=== PATIENT | male | born 1945 | race Caucasian/White ===

== ENCOUNTER 2017-04-25 08:20 | Outpatient (CLI) | payer MEDICARE, BC ==
--- NOTE | 2017-04-25 11:31 | CT ---
CT ABDOMEN AND PELVIS WITH ORAL AND IV CONTRAST: HISTORY: Prostate cancer status post prostatectomy, rising PSA. FINDINGS: The lung hernandez are unremarkable. There is a questionable tiny calculus in the gallbladder. The liver , spleen, pancreas, and adrenal glands are normal. No free air, free fluid, or lymphadenopathy is se en. There is a thin scar in the left renal cortex. There is a 2.5 cm mass arising from the inferior pole of the right kidney with increased density of 70 Hounsfield units. A small 1 cm low-density lesion is seen in the right mid renal cortex. The small bowel loops are not abnormally dilated. There is a right hip arthroplasty resulting in artifact which reduces the sensitivity of the exam for evaluation of the pelvic contents. There are cystic masses in the pelvis measuring 4 cm on the righ t and 5.5 cm on the left consistent with post prostatectomy lymphoceles. There are degenerative changes in the spine with dextroscoliosis of the lumbar spine. There are scat tered small sclerotic foci in the spine and pelvis. IMPRESSION: 1. Indeterminate right renal masses. Ultrasound of the abdomen is recommended. 2. Probable tiny gallstone. 3. Status post prostatectomy with lymphoceles in the pelvis. 4. Sclerotic foci in the spine and pelvis. Bone islands versus sclerotic mets. POS: [facility]
--- NOTE | 2017-04-25 13:35 | NM ---
BONE SCAN: HISTORY: Rising PSA. The patient has a history of prostate cancer. RADIATION DOSE: Technetium 99m MDP 33 millicuries. TECHNIQUE: Anterior and posterior whole body delayed images are obtained. FINDINGS: The images demonstrate some mild S-shaped scoliosis in the thoracolumbar spine. Multilevel lower tho racic and numerous lumbar areas of scintigraphic abnormalities. These may represent degenerative too nges, although metastatic disease cannot be excluded. No other significant areas of abnormality seen to suggest metastatic disease. I do recommend further evaluation of the lower thoracic and lumbar r egion using pre and post contrast enhanced MR images to confirm that these are degenerative rather th an metastatic foci. IMPRESSION: Lower thoracic and lumbar areas of likely degenerative changes; however, further workup using MRI may be of use. POS: [facility]
[2017-04-25] MEDS ORDERED: Iopamidol 370 76% 100 ML VIAL ONE (16:18)
== END 2017-04-25 08:21 | disposition home or self-care (01) ==
LOC: CT 08:20
PROVIDERS: ATTEND Radiology Radiation Oncology
DX: C61 Malignant neoplasm of prostate (principal); N28.89 Other specified disorders of kidney and ureter; I89.8 Other specified noninfective disorders of lymphatic vessels and lymph nodes; Z90.79 Acquired absence of other genital organ(s)
CPT/HCPCS: 74177; 78306; 82565; A9503

== ENCOUNTER 2018-09-30 08:48 | Inpatient (IN) | payer MEDICARE, BC ==
[2018-09-30 09:26] LABS: #Lymphocytes 1.4 thou/uL (1.20-3.40); #Monocytes 1.2 thou/uL (0.11-0.59); #Neutrophils 9.3 thou/uL (1.40-6.50); %Basophils 0.2 % (0.0-1.0); %Eosinophils 0.1 % (0.0-10.0); %Lymphocytes 11.7 % (21.0-51.0); Mean Corpuscular HGB CONC 33.6 g/dL (32.0-36.0); Mean Corpuscular Hemoglobin 31.8 pg (27.0-31.0); Mean Corpuscular Volume 94.5 fL (78.0-98.0); Mean Platelet Volume 8.3 fL (7.4-10.4); Platelet Count 190 thou/uL (130-400); RBC Distribution Width 12.4 % (11.5-14.5); Red Blood Cell (RBC) Count 4.09 mill/uL (4.70-6.10); White Blood Cell (WBC) Count 11.9 thou/uL (4.8-10.8)
--- NOTE | 2018-09-30 09:28 | RAD ---
Portable chest: HISTORY: Dyspnea. Syncope. Atrial fibrillation. COMPARISON: 09/03/2018 FINDINGS: Lung wright are clear. Heart and mediastinum appear unremarkable. Vascularity is normal. Visualized osseous structures unremarkable. Postop sternotomy changes again noted. IMPRESSION: No acute finding
[2018-09-30 09:46] LABS: Bilirubin Negative (Negative); Blood, Urine Negative (Negative); Clarity Clear (Clear); Glucose, Urine (Dipstick) Normal (Negative); Leukocyte Negative Leu/uL (Negative); Nitrite Negative (Negative); Protein, Urine (Dipstick) Negative (Neg-Trace); Urobilinogen Normal mg/dL (Less than 2)
[2018-09-30 09:49] LABS: ALT (SGPT) 12 U/L (8-55); AST (SGOT) 25 U/L (5-34); Albumin 4.1 g/dL (3.4-4.8); Alkaline Phosphatase 61 U/L (40-150); Anion Gap 16 mmol/L (10-20); BUN (Urea Nitrogen) 40 mg/dL (8.4-25.7); Bilirubin, Total 0.7 mg/dL (0.2-1.2); CK (CPK) 129 U/L (30-200); Calc. Creatinine Clearance 0 mL/min (70-130); Calcium 8.9 mg/dL (7.8-10.44); Carbon Dioxide 22 mmol/L (23-31); Chloride 108 mmol/L (98-107); Estimated GFR-MDRD 40; Globulin 2.3 g/dL (2.4-3.5); Glucose 123 mg/dL (83-110); Lipase 52 U/L (8-78); Potassium 3.9 mmol/L (3.5-5.1); Protein, Total 6.4 g/dL (5.8-8.1); Sodium 142 mmol/L (136-145)
[2018-09-30 10:09] LABS: INR-International Normal Ratio 1.1; PTT 27.8 SEC (22.9-36.1); Prothrombin Time 14.4 SEC (12.0-14.7)
--- NOTE | 2018-09-30 10:12 | CT ---
CT head without contrast: Multiple axial tomograms obtained through the head without IV enhancement. INDICATIONS: Syncope COMPARISON: None FINDINGS: Ventricles have normal size and position. No evidence of intracranial mass, hemorrhage, edema, or infarct. Visualized sinuses and mastoids appear clear. Bony calvarium appears unremarkable. IMPRESSION: No acute finding
[2018-09-30 10:18] LABS: CKMB 3.9 ng/mL (0-6.6)
[2018-09-30] MEDS ORDERED: ISOVUE-370 76%-LOCM 1 ML ONE (10:23)
--- NOTE | 2018-09-30 11:01 | CT ---
CT PULMONARY ANGIOGRAM WITH IV CONTRAST AND 3D POST PROCESSING: HISTORY: Dyspnea. Syncope. Atrial fibrillation. FINDINGS: There is good contrast opacification in the pulmonary arterial vasculature with extensive filling def ects bilaterally, consistent with bilateral pulmonary embolism. No pleural or pericardial effusions are seen, There are vascular calcifications without evidence of aneurysmal dilatation of the thoracic aorta. N o pneumothoraces, lobar consolidation, or lung masses are seen. There are dependent changes in the l siobhan bases. Upper abdominal tomograms demonstrate cyst in the liver and cholelithiasis. IMPRESSION: Bilateral pulmonary embolism. Discussed over the telephone with MARZENA West, in the emergency room, at 10:41 a.m. CODE ARNAUD POS: [facility]
[2018-09-30] MEDS ORDERED: Heparin 10,000 UNITS/ 10 ML VIAL SLOW IVP SCH (11:15)
[2018-09-30] MEDS ORDERED: Heparin 25,000 units/D5W 500 ML IV SCH (11:15)
[2018-09-30 12:57] LABS: Critical Call Chem Troponin I RESULT DECREASING; Troponin I 0.667 ng/mL (< 0.028)
[2018-09-30] MEDS ORDERED: Acetaminophen 325 MG TAB PO PRN (13:30)
[2018-09-30] MEDS ORDERED: Bisacodyl 5 MG TAB PO PRN (13:30)
[2018-09-30] MEDS ORDERED: Ondansetron PF 4 MG/2 ML Vial IVP PRN (13:30)
[2018-09-30] MEDS ORDERED: Sodium Chloride 0.9% 1,000 ML IV SCH (14:00)
[2018-09-30] MEDS ORDERED: ALPRAZolam 0.5 MG TAB PO PRN (14:16)
--- NOTE | 2018-09-30 16:07 | CON ---
DATE OF CONSULTATION: 09/30/2018 SERVICE: Pulmonary Medicine. REASON FOR CONSULT: PE. HISTORY OF PRESENT ILLNESS: The patient is a 73-year-old white male with no significant past medical history. He was in his usual state of health until about 3 weeks ago. He started having increasing shortness of breath with exertion. This was actually being investigated in the outpatient setting. Ultimately, this morning it progressed to the point, where it is quite severe. He got out of bed and started walking across the hallway when he had a syncopal event. He was unconscious for about 10 seconds. The watched him go down. He did not hurt himself or strike his head. He was out for about 10 seconds and then rolled back up. He was subsequently brought to the Emergency Department, where diagnostic evaluation confirmed that he had bilateral pulmonary emboli. Clot burden was quite extensive, and he had significant right ventricular heart strain. Ultimately, I was asked whether or not tPA should be pursued. The patient did not have any absolute contraindications in getting tPA, so it was administered. So far, he is 90% through with this infusion. He has done well with it without any immediate complications. He denies having any fevers or chills. He is not having any cough, sputum production, nausea, vomiting, night sweats, or orthopnea. PAST MEDICAL HISTORY: 1. Coronary artery disease. 2. Prostate cancer. 3. Asthma. 4. Atrial fibrillation. 5. Alzheimer disease. 6. Pulmonary embolism. PAST SURGICAL HISTORY: 1. Coronary artery bypass graft surgery. 2. Transurethral resection of the prostate. 3. Right hip replacement. SOCIAL HISTORY: He drinks once a month. He denies any illicit drug or tobacco abuse. He has no exposure to chemicals, dust, asbestos, or tuberculosis. FAMILY HISTORY: Noncontributory. ALLERGIES: PROTAMINE CAUSES HEART PROBLEMS. MEDICATIONS: List of his inpatient and outpatient medications were reviewed. No specific updates were made at this time. REVIEW OF SYSTEMS: General, head, ears, eyes, nose, throat, cardiovascular, respiratory, GI, , musculoskeletal, neurologic, and skin are negative except as mentioned in the HPI. PHYSICAL EXAMINATION: VITAL SIGNS: Afebrile, pulse 79, blood pressure 98/70, respirations 21, and saturation 100% on 4 L currently. GENERAL: The patient is awake and alert, in no apparent distress. LUNGS: Wonderful air entry. No prolonged expiratory phase or wheezing is appreciated. HEART: Normal rate. Regular. ABDOMEN: Soft, nontender, and nondistended. Bowel sounds are positive. MUSCULOSKELETAL: No cyanosis or clubbing. There is no pitting in the bilateral lower extremities. NEUROLOGIC: Grossly nonfocal. LABORATORY DATA: WBC 11.9, hemoglobin 13.0 (baseline 14.5), and platelets 190, 000. INR 1.1. Creatinine 1.71 (last value in 2016 was 1.04). Basic metabolic profile and liver function studies are otherwise unremarkable. Troponin is already downtrending to 0.0667. BNP 543. Urinalysis is unremarkable. There is certainly no hematuria present. IMAGIN. CT of the brain demonstrates no acute intracranial abnormality. 2. Chest x-ray demonstrates no acute cardiopulmonary abnormality. 3. CTA of the chest demonstrates extensive bilateral pulmonary emboli. There are no pleural parenchymal changes. There is significant right ventricular heart strain. There is reflux of contrast into the inferior vena cava, massively dilated right atrium, and right ventricle. The septum of the left ventricle is quite a bit straighter than I would like to see. All of these findings are consistent with acute right heart failure. ASSESSMENT: 1. Acute hypoxic respiratory failure. 2. Syncope. 3. Acute pulmonary embolism, submassive. 4. Right ventricular heart strain. 5. Non-ST elevation myocardial infarction secondary to demand/stress. DISCUSSION AND PLAN: The patient does not have any contraindications to tPA. As such, we will move forward with providing him this medication. Two hours after the infusion is complete, we will give him his first dose of Lovenox. This is going to be 1.5 mg/kg on the first dose and then tomorrow morning, we will drop to 1 mg/ kg. Starting tomorrow, we will start ambulating the patient. If he does well with this, he can be transitioned to the telemetry unit. I will follow biomarkers including troponin and BNP on a daily basis. Assume, he clears his RV strain, he can be considered for discharge from the hospital, likely Monday. We will get him converted over to an oral anticoagulant tomorrow. He does not have any history of venothromboembolic disease. I think that we can defer a secondary hypercoagulable workup to some future time. 70 minutes have been devoted to this patient in various activities. I personally reviewed all imaging studies and laboratory data noted within this document. For fifty percent of this time, I was interacting with the patient at the bedside or coordinating care with the care team. For the remainder of the time I was immediately available to the patient in the hospital unit. Job ID: [id number] MTDD
[2018-09-30] MEDS ORDERED: Enoxaparin Sodium 120 MG/0.8 ML SYRINGE SC SCH (17:00)
--- NOTE | 2018-09-30 18:53 | HP ---
PRIMARY CARE PROVIDER: Dr. Akhil Gamez. CHIEF COMPLAINT: Syncope. HISTORY OF PRESENT ILLNESS: Mr. Cain is a pleasant 73-year-old gentleman, who was seen at [facility] on September 30, 2018. He reports that 3 or 4 weeks ago, he woke up during the night and passed out. His eased him to the floor. He has been wobbly over the last 4 to 6 weeks. He also reports shortness of breath with exertion. He denies any orthopnea. He denies any chest pain. Today morning, he was in the dining room and he turned corner around the kitchen island. He then had loss of consciousness. His was there and she eased him to the floor. He reports that the event lasted less than 5 seconds. He was therefore brought to the emergency room. REVIEW OF SYSTEMS: All systems were reviewed and found to be negative except for the pertinent positives mentioned above. PAST MEDICAL HISTORY: Asthma; prostate cancer, status post surgery and radiation therapy; coronary artery disease; atrial fibrillation; and Alzheimer disease. PAST SURGICAL HISTORY: Transurethral resection of the prostate, right hip replacement, and coronary artery bypass graft surgery. SOCIAL HISTORY: The patient reports occasional alcohol use, denies tobacco or recreational drug use. FAMILY HISTORY: No family history of venous thromboembolism. CODE STATUS: I discussed his code status. He is full code. ALLERGIES: PROTAMINE. CURRENT MEDICATIONS: 1. Amlodipine 5 mg two times a day. 2. Aricept 10 mg two times a day. 3. Aspirin 325 mg daily. 4. Virden-3 fish oil one tablet daily. 5. Flonase 50 mcg two times a day. 6. Hydrochlorothiazide 25 mg daily. 7. Lisinopril 40 mg daily. 8. Namenda 10 mg two times a day. 9. Simvastatin 40 mg daily. 10. Vitamin D3, 1000 units daily. 11. Xanax 0.5 mg three times a day. 12. Coenzyme Q10, 100 mg daily. 13. Desvenlafaxine 100 mg daily. PHYSICAL EXAMINATION: GENERAL: Mr. Cain is awake and alert, not in acute distress. VITAL SIGNS: Blood pressure is 107/84, pulse 91, respiratory rate 20, and oxygen saturation 98% on room air. He is afebrile. EYES: No scleral icterus, no conjunctival pallor. ENT: Moist mucosal membranes. No oropharyngeal erythema or exudates. NECK: Supple, nontender, trachea is midline. RESPIRATORY: Accessory muscles of breathing are not active. Chest wall movements are symmetric bilaterally. Lungs are clear to auscultation without wheeze, rhonchi, or crepitations. CARDIOVASCULAR: S1 and S2 are heard, irregular. Peripheral pulses palpable. No carotid bruit. No pericardial rub. ABDOMEN: Soft, nontender, bowel sounds are heard, no hepatomegaly, no splenomegaly. NEUROLOGIC: Cranial nerves 2 through 12 are intact, deep tendon reflexes 2+. SKIN: No rashes or subcutaneous nodules. LYMPHATIC: No cervical lymphadenopathy. PSYCHIATRIC: Normal mood, normal affect, the patient is oriented to person and place, not to time. DIAGNOSTIC STUDIES: Mr. Cain's labs and investigations were reviewed. I reviewed his electrocardiogram, which shows atrial fibrillation with premature ventricular complexes. I also reviewed his chest x-ray, which does not show any pulmonary infiltrates. Noncontrast CT scan of the brain did not show any acute findings. CT angiogram of the chest showed bilateral pulmonary embolism. He has leukocytosis with 11,900 white cells, of which 78% are neutrophils; normocytic anemia with hemoglobin 13; normal platelet count. INR 1.1. Normal sodium, normal potassium, elevated blood urea nitrogen of 40, elevated creatinine of 1.71, creatinine was 1.04 on December 27, 2015. Unremarkable LFTs. Elevated BNP of 543.5, and elevated troponin-I of 0.862. Urinalysis was negative for nitrite and leukocyte esterase. ASSESSMENT AND PLAN: Mr. Cain is a pleasant 73-year-old gentleman, who was seen at [facility] on September 30, 2018. His problem list includes: 1. Bilateral pulmonary embolism: Mr. Cain is presenting with bilateral pulmonary embolism. He has received tPA in the emergency room. He will be admitted to the Critical Care Unit. Pulmonology Service has been consulted for opinion and help with management. 2. Elevated troponin-I: Most likely secondary to pulmonary embolism. Cardiology Service has been consulted for opinion and help with management. 3. Acute kidney injury: We will recheck a.m. labs and follow the creatinine. 4. Atrial fibrillation: We will continue home medications. The patient will be initiated on anticoagulation for pulmonary embolism. Many thanks for allowing me to participate in your patient's care. Please feel free to contact me with any questions or concerns. LEVEL OF RISK: High. LEVEL OF COMPLEXITY: High. Job ID: [id number]
[2018-09-30] MEDS: Atorvastatin Calcium 20 MG TAB PO SCH ×2 (20:38→20:39)
[2018-09-30] MEDS: Donepezil HCl 5 MG TAB PO SCH (20:39)
--- NOTE | 2018-09-30 23:55 | CON ---
DATE OF CONSULTATION: HISTORY OF PRESENT ILLNESS: Neymar Cain is a 73-year-old white male with a history of previous bypass surgery, who has had a general decline in his health over the last 3 or 4 weeks. He has been having increasing shortness of breath and weakness. Three or four weeks ago, he did have a syncopal spell when he woke up during the night. He has had progressive dyspnea on exertion. Today, he had another episode of syncope, he was out for approximately 5 to 10 seconds and is admitted. Also apparently, Dr. Gamez felt he had atrial fibrillation on the EKG several weeks ago. He was found on CT angiogram to have extensive bilateral pulmonary emboli with extensive clot burden. He has been given tPA and feels much improved at the present time. Also, he was returned to normal sinus rhythm. PAST MEDICAL HISTORY: Coronary artery disease, prostate cancer, previous atrial fibrillation, asthma, alzheimer's disease, pulmonary embolism, hypertension and hypercholesterolemia. PAST SURGICAL HISTORY: CABG by Dr. Filiberto Callejas in August 2001. Dr. Cortez did his catheterization. Those records have been purged. Right hip replacement, transurethral resection of the prostate. SOCIAL HISTORY: He does not smoke. He occasionally drinks. FAMILY HISTORY: Unremarkable. MEDICATIONS: 1. Alprazolam 0.5 mg at bedtime. 2. Norvasc 10 mg daily. 3. Aspirin 325 daily. 4. Donepezil 10 mg b.i.d. 5. Hydrochlorothiazide 25 daily. 6. Lisinopril 40 mg daily. 7. Memantine 10 mg b.i.d. 8. Simvastatin 40 at bedtime. ALLERGIES: PROTAMINE. REVIEW OF SYSTEMS: Unremarkable. PHYSICAL EXAMINATION: VITAL SIGNS: Blood pressure 97/66, pulse 83. HEENT: PERRL. NECK: Supple. CHEST: Clear. CARDIAC: S1 and S2 normal without any S3, S4, or murmurs. ABDOMEN: Normal bowel sounds without tenderness or organomegaly. EXTREMITIES: Revealed no clubbing, cyanosis, or edema. NEUROLOGIC: Grossly intact. SKIN: Warm and dry. LABORATORY DATA: Initial EKG reveals atrial fibrillation with controlled rate with nonspecific ST and T-wave changes. He has since converted to sinus rhythm. Head CT is unremarkable. Chest CTA revealed bilateral pulmonary emboli. Hemoglobin 13.0, hematocrit 38.7, white count 11,900, platelets 190,000, INR 1.1. Sodium 142, potassium 3.9, chloride 108, carbon dioxide 22, BUN 40, creatinine 1.71. Troponin I 0.862. BNP 543.5. IMPRESSION: 1. Extensive bilateral pulmonary emboli, status post tPA infusion. 2. Non-ST elevation myocardial infarction, type 2. 3. History of coronary artery bypass grafting in 2001. 4. Hypertension. 5. Hypercholesterolemia. 6. Alzheimer's disease. 7. Acute kidney injury versus chronic kidney disease. PLAN: Echocardiogram will be performed. The patient went into atrial fibrillation, but has since converted back to sinus rhythm. He is currently being anticoagulated. Job ID: [id number] MTDD
[2018-10-01] MEDS: Amlodipine 5 MG TAB PO SCH (08:56)
[2018-10-01] MEDS: Lisinopril 20 MG TAB PO SCH (08:57)
[2018-10-01] MEDS ORDERED: Enoxaparin Sodium 80 MG/0.8 ML SYRINGE SC SCH (09:00)
[2018-10-01] MEDS ORDERED: Pantoprazole 40 MG VIAL IVP SCH (09:30)
[2018-10-01] MEDS ORDERED: Polyethylene Glycol 3350 17 GM Packet PO SCH (09:30)
[2018-10-01 09:46] LABS: Platelet Count 193 thou/uL (130-400)
[2018-10-01 10:05] LABS: Phosphorus 2.9 mg/dL (2.3-4.7)
[2018-10-01 10:07] LABS: Anion Gap 11 mmol/L (10-20); BUN (Urea Nitrogen) 32 mg/dL (8.4-25.7); Calc. Creatinine Clearance 76 mL/min (70-130); Calcium 8.5 mg/dL (7.8-10.44); Carbon Dioxide 24 mmol/L (23-31); Chloride 108 mmol/L (98-107); Estimated GFR-MDRD 66; Glucose 99 mg/dL (83-110); Magnesium 2.1 mg/dL (1.6-2.6); Potassium 3.4 mmol/L (3.5-5.1); Sodium 140 mmol/L (136-145)
[2018-10-01 10:11] LABS: Troponin I 0.179 ng/mL (< 0.028)
--- NOTE | 2018-10-01 10:35 | PRG ---
DATE OF SERVICE: 10/01/2018 SERVICE: Pulmonary Medicine. INTERVAL HISTORY: The patient is doing fine from respiratory standpoint. That being said, he had multiple bloody bowel movements overnight. He first passed a large clot. Then, he passed a smaller clot. The patient is asymptomatic. He denies any chest discomfort or shortness of breath. Otherwise, he is returning to his usual state of health. He does not note having any previous bloody bowel movements or black stools. PHYSICAL EXAMINATION: VITAL SIGNS: Afebrile, pulse 79, blood pressure 129/89, respirations 20, and saturation 96% on room air. GENERAL: The patient is awake and alert, in no apparent distress. LUNGS: Very good air entry. No prolonged expiratory phase or wheezing is present. HEART: Normal rate and regular. ABDOMEN: Soft, nontender, nondistended. Bowel sounds are positive. MUSCULOSKELETAL: No cyanosis or clubbing. No pitting in the bilateral lower extremities. NEUROLOGIC: Grossly nonfocal. LABORATORY DATA: Laboratories from this morning are actually pending. ASSESSMENT: 1. Acute hypoxic respiratory failure, resolved. 2. Pulmonary embolism, submassive. 3. Gastrointestinal bleed. 4. Syncope. 5. Atrial fibrillation with rapid ventricular response, returned to sinus rhythm. 6. Right ventricular heart strain. 7. [id number] myocardial infarction secondary to demand. DISCUSSION AND PLAN: The patient is doing fine from respiratory standpoint, but the GI bleed is alarming. I will repeat stat hemoglobin and hematocrit. We will type and cross him, give him a bowel prep to see if he clears. If his hemoglobins continue to fall off, we will give him blood and FFP. Anticoagulation will be held, temporarily. Critical Care will continue to follow along. He will need to stay in the ICU until the rate of his bleed is delineated. Job ID: [id number] MTDD
[2018-10-01] MEDS ORDERED: GoLYTELY 4,000 ml Bottle PO SCH (12:00)
[2018-10-01 12:50] LABS: #Eosinphils 0.1 thou/uL (0.0-0.7); #Lymphocytes 1.2 thou/uL (1.20-3.40); #Monocytes 0.9 thou/uL (0.11-0.59); #Neutrophils 5.8 thou/uL (1.40-6.50); %Basophils 0.6 % (0.0-1.0); %Eosinophils 1.3 % (0.0-10.0); %Lymphocytes 14.6 % (21.0-51.0); %Monocytes 10.8 % (0.0-10.0); %Neutrophils 72.7 % (42.0-75.0); Hemoglobin 11.8 g/dL (14.0-18.0); Mean Corpuscular HGB CONC 32.9 g/dL (32.0-36.0); Mean Corpuscular Hemoglobin 30.9 pg (27.0-31.0); Mean Corpuscular Volume 93.8 fL (78.0-98.0); Mean Platelet Volume 8.9 fL (7.4-10.4); Platelet Count 187 thou/uL (130-400); RBC Distribution Width 12.4 % (11.5-14.5); Red Blood Cell (RBC) Count 3.83 mill/uL (4.70-6.10)
[2018-10-01] MEDS ORDERED: PROPOFOL 200 MG/20 ML VIAL ONE (13:01)
--- NOTE | 2018-10-01 13:03 | PDOC.HOSPP ---
- Subjective Encounter Date: 10/01/18 Encounter Time: 09:00 Subjective: Pt seen for followup re; bilateral pulmonary embolism. Reports having blood in stool. - Objective Vital Signs & Weight: Vital Signs (12 hours) Temp Pulse BP Pulse Ox 10/01/18 12:00 98.1 F 10/01/18 11:41 99 10/01/18 08:57 128/89 10/01/18 08:56 79 128/89 10/01/18 07:29 98 10/01/18 07:00 97.9 F 10/01/18 04:00 98.2 F Weight Weight 195 lb 5.273 oz Most Recent Monitor Data Heart Rate from ECG 91 NIBP 122/79 NIBP BP-Mean 93 Respiration from ECG 22 SpO2 96 I&O: 09/30/18 10/01/18 10/02/18 06:59 06:59 06:59 Intake Total 1396 Output Total 945 500 Balance 451 -500 Result Diagrams: 10/01/18 09:26 10/01/18 09:32 Additional Labs: labs and MARs reviewed by me EKG Reviewed by me: Yes (Tele; NSR) ROS - Review of Systems Constitutional: denies: fever, chills, sweats, weakness, malaise Respiratory: denies: cough, shortness of breath, SOB with excertion, pleuritic pain, wheezing Cardiovascular: denies: chest pain, palpitations, orthopnea, paroxysmal noc. dyspnea, edema, light headedness Gastrointestinal: reports: hematochezia. denies: nausea, vomitting, abdominal pain, diarrhea, constipation, melena Genitourinary: denies: dysuria, frequency, incontinence, hematuria, retention - Medication Medications: Active Medications Generic Name Dose Route Start Last Admin Trade Name Freq PRN Reason Stop Dose Admin Amlodipine Besylate 5 mg 10/01/18 09:00 10/01/18 08:56 Norvasc PO 5 mg DAILY JORGE Administration Atorvastatin Calcium 20 mg 09/30/18 21:00 09/30/18 20:39 Lipitor PO 20 mg HS JORGE Administration Donepezil HCl 5 mg 09/30/18 21:00 09/30/18 20:39 Aricept PO 5 mg HS JORGE Administration Enoxaparin Sodium 80 mg 10/01/18 09:00 10/01/18 08:58 Lovenox SC Not Given 0900,2100 [facility] Lisinopril 20 mg 10/01/18 09:00 10/01/18 08:57 Zestril PO 20 mg DAILY JORGE Administration Memantine 10 mg 10/01/18 09:00 10/01/18 08:57 Namenda PO 10 mg DAILY JORGE Administration - Exam NAD Eye: anicteric sclera ENT: moist mucosa Neck: supple, symmetric, no JVD, no thyromegaly Heart: RRR, no rubs, normal peripheral pulses Heart - other findings: S1, S2 Respiratory: CTAB, no wheezes, no rales, no ronchi Gastrointestinal: soft, non-tender, non-distended, normal bowel sounds Neurological: CN's grossly intact Psychiatric: normal affect, normal behavior Hosp A/P (1) Bilateral pulmonary embolism Code(s): I26.99 - OTHER PULMONARY EMBOLISM WITHOUT ACUTE COR PULMONALE Status : Acute (2) Rectal bleed Code(s): K62.5 - HEMORRHAGE OF ANUS AND RECTUM Status: Acute (3) NSTEMI (non-ST elevated myocardial infarction) Code(s): I21.4 - NON-ST ELEVATION (NSTEMI) MYOCARDIAL INFARCTION Status: Acute (4) HTN (hypertension) Code(s): I10 - ESSENTIAL (PRIMARY) HYPERTENSION Status: Chronic (5) Dyslipidemia Code(s): E78.5 - HYPERLIPIDEMIA, UNSPECIFIED Status: Chronic (6) Alzheimer's dementia Code(s): G30.9 - ALZHEIMER'S DISEASE, UNSPECIFIED; F02.80 - DEMENTIA IN OTH DISEASES CLASSD ELSWHR W/O BEHAVRL DISTURB Status: Chronic - Plan plan discussed w/ family, out of bed/ambulate Pt to go for scope today. Hb stable. Received tPA yesterday. BP controlled. Dementia stable. NSTEMI type 2 secondary to pulmonary embolism.
[2018-10-01 14:28] LABS: Hemoglobin 12.2 g/dL (14.0-18.0)
--- NOTE | 2018-10-01 15:41 | OP ---
DATE OF PROCEDURE: 10/01/2018 PROCEDURE PERFORMED: Esophagogastroduodenoscopy. PREOPERATIVE DIAGNOSIS: Bleeding after starting anticoagulation for large pulmonary embolus. POSTOPERATIVE DIAGNOSES: 1. Small hiatal hernia. No stigmata of bleeding. 2. Mild antral gastritis. No active bleeding. No stigmata of bleeding. No biopsies obtained as he is anticoagulated. 3. Normal duodenum. RECOMMENDATION: 1. PPI therapy. 2. Colonoscopy tomorrow. Can continue with anticoagulation. Serial H and Hs. DESCRIPTION OF PROCEDURE: After the patient was informed of the risks, benefits, and possible complications of endoscopy including perforation, reaction to medication, and aspiration, informed consent was obtained. The patient was brought to endoscopy suite, where he was sedated in standard fashion. Once he was comfortable, a bite block was placed inside the orifice. The endoscope was advanced to the esophagus, stomach and second and third portions of the duodenum, and slowly removed. There was good visualization of the mucosa. There was no mass, lesions, or AV malformations identified in the esophagus. There was a small hiatal hernia present with sliding-type 3 cm with no stigmata of bleeding or Aster-Marquez tear or Rodolfo's erosions. The stomach was entered and found to be normal in retroflexed views, except for mild antral gastritis with small erosions, but no active bleeding. No stigmata of bleeding. The bulb was entered and found to be normal in forward and retroflexed views. The scope was then removed. The patient tolerated the procedure well. There were no complications. Job ID: [id number]
[2018-10-01] MEDS: GoLYTELY 4,000 ml Bottle PO SCH (17:35)
--- NOTE | 2018-10-01 19:34 | CON ---
DATE OF CONSULTATION: 10/01/2018 REASON FOR CONSULTATION: GI bleeding. HISTORY OF PRESENT ILLNESS: Mr. Cain is a 73-year-old gentleman, who came into the hospital yesterday. He presented to the emergency room with severe shortness of breath and was ultimately diagnosed with a pulmonary embolus. Apparently, he has been having some shortness of breath for about 3 weeks. Here, he had a hemodynamic instability with this and extensive clot burden with right ventricular strain. He was given tPA and rapid improvement in his hemodynamics. Overnight, he was noted to have a couple of bloody stools. Apparently, there were 3 reported over the last couple of hours ago, he passed dark clot, then some normal clot. He is asymptomatic presently. He has no nausea or vomiting and has no abdominal pain. The patient's states he has not had any issues with GI bleeding in the past. He denies any significant heartburn. He did have a colonoscopy by my partner Dr. Krishnan in 2013, which was normal. PAST MEDICAL HISTORY: Coronary artery disease with coronary artery bypass grafting in the past, prostate cancer with prostatectomy and radiation therapy with recurrence in 2018, asthma, atrial fibrillation, Alzheimer's, and then recent pulmonary embolism. PAST SURGICAL HISTORY: Coronary artery bypass graft, TURP with prostatectomy for prostate cancer, radiation therapy for prostate cancer, right hip replacement for fracture, and colonoscopy. SOCIAL HISTORY: The patient rarely drinks alcohol. Does not use any drugs. Does not smoke. FAMILY HISTORY: Negative for colorectal cancer or liver disease. ALLERGIES: NONE KNOWN. MEDICATIONS: Presently, 1. Tylenol. 2. Xanax. 3. Norvasc. 4. Lipitor. 5. Dulcolax. 6. Desvenlafaxine. 7. Aricept. 8. Lovenox 80 q.12. 9. Lisinopril. 10. Namenda. 11. Zofran. 12. Protonix. 13. GoLYTELY scheduled, but has not been given. 14. He is on simvastatin, , loratadine, hydrochlorothiazide, aspirin, and alprazolam. REVIEW OF SYSTEMS: It is difficult as the patient has some Alzheimer's, not really recall recent history. His notes he has had no allergies. No dysphagia, odynophagia, chest pain, or dyspnea. His prostate cancer is in remission. He has had no issues, rashes, dysuria, frequency, or urgency. PHYSICAL EXAMINATION: VITAL SIGNS: Temperature is 98.1, pulse is 79, and blood pressure 126/92. GENERAL: He is resting in bed comfortably. He is not dyspneic. He is not pale. LUNGS: Clear. HEART: Regular rate and rhythm without murmurs. ABDOMEN: Soft and nontender without any palpable hepatomegaly. EXTREMITIES: No clubbing, cyanosis, or edema. The stool was examined by myself, nurse, and saved it. LABORATORY DATA: Hemoglobin was 14.6 last year, 09/30 on admission it was 13.0, today it is 12 at 0926 hours. Platelet count normal at 187. White count 8. INR is 1.1. BUN and creatinine are 40 and 1.7 yesterday, 32 and 1.1 today. Electrolytes are normal. Troponin 0.667, 0.179 today. BNP 186. Lipase 52. LFTs normal. ASSESSMENT: Gastrointestinal bleeding, this seems to be lower. He does take an aspirin a day, so an upper source would be some to consider. He received tPA and that maybe just made him ooze from hemorrhoids or other sources. He had a colonoscopy 5 years ago that was normal, so I think it is probably less likely he is going to have any significant pathology in the colon. PLAN: We will proceed with EGD today. If this is negative, I think he can resume his anticoagulation for his DVT, although this is bilateral and severe, and we can plan for colonoscopy tomorrow. Job ID: [id number]
[2018-10-01] MEDS: Atorvastatin Calcium 20 MG TAB PO SCH (20:32)
[2018-10-01] MEDS: Donepezil HCl 5 MG TAB PO SCH (20:32)
[2018-10-01] MEDS: Pantoprazole 40 MG VIAL IVP SCH (20:32)
[2018-10-02 04:37] LABS: #Eosinphils 0.1 thou/uL (0.0-0.7); #Neutrophils 4.7 thou/uL (1.40-6.50); %Basophils 0.5 % (0.0-1.0); %Eosinophils 1.4 % (0.0-10.0); %Lymphocytes 15.3 % (21.0-51.0); %Monocytes 14.1 % (0.0-10.0); %Neutrophils 68.8 % (42.0-75.0); Hemoglobin 11.8 g/dL (14.0-18.0); Mean Corpuscular HGB CONC 34.2 g/dL (32.0-36.0); Mean Corpuscular Hemoglobin 32.2 pg (27.0-31.0); Mean Corpuscular Volume 94.3 fL (78.0-98.0); Mean Platelet Volume 8.4 fL (7.4-10.4); Platelet Count 203 thou/uL (130-400); RBC Distribution Width 12.2 % (11.5-14.5); Red Blood Cell (RBC) Count 3.67 mill/uL (4.70-6.10); White Blood Cell (WBC) Count 6.8 thou/uL (4.8-10.8)
[2018-10-02 04:46] LABS: Anion Gap 12 mmol/L (10-20); BUN (Urea Nitrogen) 20 mg/dL (8.4-25.7); Calc. Creatinine Clearance 96 mL/min (70-130); Calcium 8.6 mg/dL (7.8-10.44); Carbon Dioxide 26 mmol/L (23-31); Chloride 108 mmol/L (98-107); Estimated GFR-MDRD 86; Glucose 110 mg/dL (83-110); Potassium 3.9 mmol/L (3.5-5.1); Sodium 142 mmol/L (136-145)
[2018-10-02 04:51] LABS: Troponin I 0.094 ng/mL (< 0.028)
[2018-10-02 06:27] VITALS: BMI 25.2
[2018-10-02] MEDS: Lisinopril 20 MG TAB PO SCH (08:31)
[2018-10-02] MEDS: GoLYTELY 4,000 ml Bottle PO SCH (08:31)
[2018-10-02] MEDS: DESVENLAFAXINE 100 MG PO SCH (08:32)
[2018-10-02] MEDS: Amlodipine 5 MG TAB PO SCH (08:32)
[2018-10-02] MEDS: Pantoprazole 40 MG VIAL IVP SCH ×2 (08:32→19:46)
[2018-10-02] MEDS ORDERED: Venlafaxine HCl XR 150 MG CAP PO SCH (09:00)
[2018-10-02] MEDS ORDERED: Enoxaparin Sodium 80 MG/0.8 ML SYRINGE SC SCH (11:00)
[2018-10-02] MEDS ORDERED: PROPOFOL 200 MG/20 ML VIAL ONE (13:33)
[2018-10-02] MEDS ORDERED: PHENYLEPHRINE-NS 100 MCG/ML 10 ML SYRINGE ONE (13:33)
[2018-10-02] MEDS ORDERED: Lidocaine 1% PF 5 ML VIAL ONE (13:33)
--- NOTE | 2018-10-02 13:43 | PQF ---
CLINICAL DOCUMENTATION IMPROVEMENT CLARIFICATION FORM: ICD-10 Updated PLEASE DO AN ADDENDUM TO THE PROGRESS NOTE WITH ANY DOCUMENTATION UPDATES OR ADDITIONS AND CARRY THROUGH TO DC SUMMARY. THANK YOU. DATE: 10/02/18 ATTN: DR. LEMON Please exercise your independent, professional judgment in responding to the clarification form. Clinical indicators are provided on the bottom of this form for your review Please check appropriate box(s): [ ] Acute blood loss anemia [ ] Post-op anemia related to acute blood loss [ ] Anemia: [ ] Aplastic [ ] Nutritional [ ] Drug induced (specify) ___ [ ] Hemolytic [ ] Hereditary [ ] Acquired [ ] Autoimmune [ ] Non-autoimmune [ ] Enzyme disorder [ ] Chronic Anemia: [ ] Blood loss [ ] Hemolytic [ ] Simple [ ] Due to Vitamin B12 Deficiency [ ] Other [ ] Anemia of Chronic Disease (please specify) [ ] Anemia due to Neoplasm: [ ] Primary [ ] Secondary [ ] Anemia due to (please choose): [ ] Due to Chemotherapy [ ] Due to Radiotherapy [ ] Due to Immunotherapy [ ] Other diagnosis [ ] Unable to determine In addition, please specify: Present on Admission (POA): [ ] Yes [ ] No [ ] Unable to determine For continuity of documentation, please document condition throughout progress notes and discharge summary. Thank You. CLINICAL INDICATORS - SIGNS / SYMPTOMS / LABS PROGRESS NOTE 10/01: "REPORTS HAVING BLOOD IN STOOL" HGN 09/30: 13.0 HGN 10/01: 11.8 RISKS: ADMINISTRATION OF TPA TREATMENT: BLOOD TRANSFUSIONS X2 GI CONSULT EGD (This form is maintained as a part of the permanent medical record) 2014 [employer]. All Rights Reserved [email or web address] [email or web address] Office: [phone] YRN
[2018-10-02] MEDS ORDERED: Furosemide 20 MG/2 ML VIAL SLOW IVP SCH (17:00)
--- NOTE | 2018-10-02 17:12 | PRG ---
DATE OF SERVICE: 10/02/2018 SERVICE: Pulmonary Medicine. INTERVAL HISTORY: The patient is doing really well from respiratory standpoint. Breathing comfortably. He has no complaints of chest discomfort, shortness of breath, nausea, or vomiting. He had a bowel prep last night. With this, he was up and down onto the bedside commode. He did not have significant dyspnea that limited that movement. PHYSICAL EXAMINATION: VITAL SIGNS: Afebrile, pulse 89, blood pressure 129/92, respirations 23, saturation 91% on room air. GENERAL: The patient is awake and alert, in no apparent distress. LUNGS: Excellent air entry. No prolonged expiratory phase or wheezing is appreciated. HEART: Normal rate. Regular. ABDOMEN: Soft, nontender, and nondistended. Bowel sounds are positive. MUSCULOSKELETAL: No cyanosis or clubbing. No pitting in bilateral lower extremities. NEUROLOGIC: Grossly nonfocal. LABORATORY DATA: WBC 6.8, hemoglobin 11.8, platelets 203,000. Basic metabolic profile is otherwise unremarkable. Troponin is downtrending. BNP is also downtrending. Urinalysis is negative. IMAGING DATA: Echocardiogram demonstrates normal ejection fraction, diastolic dysfunction, and moderately enlarged right ventricle with normal function. ASSESSMENT: 1. Acute hypoxic respiratory failure, resolved. 2. Acute pulmonary embolism, submassive. 3. Gastrointestinal bleed (normal esophagogastroduodenoscopy, colon pending). 4. Syncope. 5. Atrial fibrillation with rapid ventricular response, returned to sinus rhythm. 6. Right ventricular heart strain, resolving. 7. Avn-ZV-plbjaulke elevation myocardial infarction, resolving. DISCUSSION AND PLAN: After the patient's colonoscopy, if there is no contraindication, we will put him back on anticoagulation. Tomorrow, if he is doing well, we will consider putting him on a direct oral anticoagulant. We will continue our mobilization efforts. Pulmonary/Critical Care will continue to follow very closely while the patient remains inhouse. Job ID: [id number]
--- NOTE | 2018-10-02 18:23 | PDOC.HOSPP ---
- Subjective Encounter Date: 10/02/18 Encounter Time: 08:20 Subjective: Pt seen for followup re: pulmonary embolism. Says he feels better. - Objective Vital Signs & Weight: Vital Signs (12 hours) Temp Pulse BP Pulse Ox 10/02/18 17:21 97 10/02/18 16:00 98.1 F 10/02/18 12:00 98.1 F 10/02/18 08:32 87 110/89 10/02/18 08:31 110/89 10/02/18 07:12 96 Weight Weight 196 lb 3.382 oz Most Recent Monitor Data Heart Rate from ECG 95 NIBP 131/97 NIBP BP-Mean 108 Respiration from ECG 20 SpO2 94 I&O: 10/01/18 10/02/18 10/03/18 06:59 06:59 06:59 Intake Total 1396 2550 240 Output Total 945 1400 1100 Balance 451 1150 -860 Result Diagrams: 10/02/18 03:49 10/02/18 03:49 Additional Labs: Labs and MARs reviewed by me. EKG Reviewed by me: Yes (Tele: NSR) ROS - Review of Systems Respiratory: denies: cough, shortness of breath, SOB with excertion, pleuritic pain, wheezing, other Cardiovascular: denies: chest pain, palpitations, orthopnea, paroxysmal noc. dyspnea, edema, light headedness Gastrointestinal: denies: nausea, vomitting, abdominal pain, diarrhea, constipation, melena, hematochezia - Medication Medications: Active Medications Generic Name Dose Route Start Last Admin Trade Name Freq PRN Reason Stop Dose Admin Amlodipine Besylate 5 mg 10/01/18 09:00 10/02/18 08:32 Norvasc PO 5 mg DAILY JORGE Administration Atorvastatin Calcium 20 mg 10/01/18 21:00 10/01/18 20:32 Lipitor PO 20 mg HS JORGE Administration Donepezil HCl 5 mg 09/30/18 21:00 10/01/18 20:32 Aricept PO 5 mg HS JORGE Administration Enoxaparin Sodium 80 mg 10/01/18 09:00 10/01/18 08:58 Lovenox SC Not Given 0900,2100 JORGE Furosemide 20 mg 10/02/18 17:00 10/02/18 17:07 Lasix SLOW IVP 10/02/18 19:00 20 mg NOW JORGE Administration Lisinopril 20 mg 10/01/18 09:00 10/02/18 08:31 Zestril PO 20 mg DAILY JORGE Administration Memantine 10 mg 10/01/18 09:00 10/02/18 08:31 Namenda PO 10 mg DAILY JORGE Administration Pantoprazole Sodium 40 mg 10/01/18 21:00 10/02/18 08:32 Protonix IVP 40 mg Q12HR JORGE Administration Desvenlafaxine 100 1 each 10/02/18 09:00 10/02/18 08:32 Mg Er PO 1 each DAILY JORGE Administration Sodium Chloride 10 ml 10/01/18 21:00 10/02/18 08:33 Flush - Normal Saline IVF 10 ml Q12HR JORGE Administration - Exam NAD Eye: anicteric sclera ENT: moist mucosa Neck: supple Heart: RRR Respiratory: CTAB Gastrointestinal: soft, non-tender Neurological: no weakness Psychiatric: normal affect, normal behavior Hosp A/P (1) Bilateral pulmonary embolism Code(s): I26.99 - OTHER PULMONARY EMBOLISM WITHOUT ACUTE COR PULMONALE Status : Acute (2) Acute blood loss anemia Code(s): D62 - ACUTE POSTHEMORRHAGIC ANEMIA Status: Acute Plan: not present on admission (3) NSTEMI (non-ST elevated myocardial infarction) Code(s): I21.4 - NON-ST ELEVATION (NSTEMI) MYOCARDIAL INFARCTION Status: Acute (4) HTN (hypertension) Code(s): I10 - ESSENTIAL (PRIMARY) HYPERTENSION Status: Chronic (5) Dyslipidemia Code(s): E78.5 - HYPERLIPIDEMIA, UNSPECIFIED Status: Chronic (6) Alzheimer's dementia Code(s): G30.9 - ALZHEIMER'S DISEASE, UNSPECIFIED; F02.80 - DEMENTIA IN OTH DISEASES CLASSD ELSWHR W/O BEHAVRL DISTURB Status: Chronic (7) Rectal bleed Code(s): K62.5 - HEMORRHAGE OF ANUS AND RECTUM Status: Resolved - Plan plan discussed w/ family, out of bed/ambulate Continue Lovenox, switch to NOACs if hemoglobin continues to be stable and after all procedures completed. Pt to go for colonoscopy today, had EGD, report noted. Hb stable. s/p tPA two days ago. BP controlled. Dementia stable. NSTEMI type 2 secondary to pulmonary embolism, troponins trending down.
[2018-10-02] MEDS: Donepezil HCl 5 MG TAB PO SCH (19:45)
[2018-10-02] MEDS: Atorvastatin Calcium 20 MG TAB PO SCH (19:45)
--- NOTE | 2018-10-03 01:34 | OP ---
DATE OF PROCEDURE: 10/02/2018 PROCEDURE PERFORMED: Colonoscopy with argon plasma coagulation. INDICATION FOR PROCEDURE: Hematochezia in light of recent anticoagulation with tPA. DESCRIPTION OF PROCEDURE: After the risks and benefits of the procedure were explained to the patient including risks of bleeding, infection, perforation, reactions to anesthesia, aspiration and/or pain, informed consent was obtained. The patient was then taken to the endoscopy suite, where deep sedation was administered via propofol and anesthesia support. Once adequate sedation was achieved, a digital rectal examination was performed followed by introduction of the standard colonoscope which was then advanced to the terminal ileum with some difficulty due to tortuosity of the colon. The quality of the prep was fair with moderate amount of adherent stool seen throughout the entire colon. The patient tolerated the procedure well with no immediate perioperative complications. Upon conclusion of the procedure, all equipment was removed from the patient and he was transferred to ICU in satisfactory condition. FINDINGS: Digital rectal exam: Normal examination on external exam. Colon findings: Moderate amount of adherent stool was seen throughout the entire colon, which did interfere with visualization somewhat but with aggressive irrigation and suctioning, was not able to be changed from a fair prep. Lesions less than 4 mm in size could have been missed of the mucosa seen. Normal-appearing mucosa was seen within the terminal ileum, as well as at the ileocecal valve and appendiceal orifice. A 4 mm polyp was seen in the cecum and not intervened upon during this examination. Given his recent history of bleeding and fear of further bleeding from the site if intervened upon, a 3 to 4 mm polyp was also seen in the ascending colon and again not intervened upon. A 3 to 4 mm polyp was seen in the transverse colon and again not intervened upon as well. Normal-appearing mucosa was then seen in the descending colon. Numerous small and medium-sized diverticula were seen in the sigmoid colon and with careful inspection, there was no evidence of active or recent bleeding. Normal-appearing mucosa was then seen within the rectum. However, in the distal rectum, there were multiple telangiectasias noted that did exhibit active and recent bleeding, especially with manipulation of the scope. These arteriovenous malformations/telangiectasias were located just proximal to the dentate line and affecting the distal colon up to 3 cm past the anal verge. Given his history of prostate cancer with radiation, this was consistent with radiation proctitis. These bleeding telangiectasias were then intervened upon successfully with argon plasma coagulation with good hemostasis achieved. No internal hemorrhoids were seen on rectal retroflexion. IMPRESSION: 1. Multiple small colonic polyps seen in the cecum, ascending and transverse colon, not intervened upon due to increased risk of bleeding while on anticoagulation. 2. Moderate sigmoid diverticulosis without evidence of active/recent bleeding. 3. 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 RECOMMENDATIONS: 1. We will continue to trend H and H and transfuse as necessary to maintain an H and H of 7/21. 2. Continue to monitor clinically for signs of active GI bleeding. 3. Would attempt to hold full anticoagulation for another 12 to 24 hours given the intervention today and then restart in light of recent pulmonary emboli requiring tPA. 4. We will place the patient on a clear liquid diet and advance as tolerated in light of possible bleeding. We will continue to follow. Please call with any questions. Job ID: [id number]
[2018-10-03 05:37] LABS: Hemoglobin 12.5 g/dL (14.0-18.0)
[2018-10-03 05:53] LABS: Anion Gap 14 mmol/L (10-20); BUN (Urea Nitrogen) 16 mg/dL (8.4-25.7); Calc. Creatinine Clearance 86 mL/min (70-130); Calcium 8.9 mg/dL (7.8-10.44); Carbon Dioxide 24 mmol/L (23-31); Chloride 109 mmol/L (98-107); Estimated GFR-MDRD 76; Glucose 95 mg/dL (83-110); Potassium 3.5 mmol/L (3.5-5.1); Sodium 143 mmol/L (136-145)
[2018-10-03] MEDS: DESVENLAFAXINE 100 MG PO SCH (08:35)
[2018-10-03] MEDS: Lisinopril 20 MG TAB PO SCH (08:36)
[2018-10-03] MEDS: Amlodipine 5 MG TAB PO SCH (08:36)
--- NOTE | 2018-10-03 13:59 | PDOC.HOSPP ---
- Subjective Encounter Date: 10/03/18 Encounter Time: 09:30 Subjective: awake, no sob or pain had a small episode of blood in stool, none after that and family at bedside - Objective Vital Signs & Weight: Vital Signs (12 hours) Temp Pulse BP Pulse Ox 10/03/18 11:58 98.3 F 10/03/18 08:36 91 105/85 10/03/18 07:18 99 10/03/18 07:00 98.1 F 10/03/18 03:00 98.0 F Weight Weight 194 lb 14.218 oz Most Recent Monitor Data Heart Rate from ECG 113 NIBP 103/83 NIBP BP-Mean 89 Respiration from ECG 21 SpO2 100 I&O: 10/02/18 10/03/18 10/04/18 06:59 06:59 06:59 Intake Total 2550 390 960 Output Total 1400 2600 300 Balance 1150 -2210 660 Result Diagrams: 10/03/18 05:01 10/03/18 05:01 ROS - Medication Medications: Active Medications Generic Name Dose Route Start Last Admin Trade Name Rosalio PRN Reason Stop Dose Admin Amlodipine Besylate 5 mg 10/01/18 09:00 10/03/18 08:36 Norvasc PO 5 mg DAILY JORGE Administration Atorvastatin Calcium 20 mg 10/01/18 21:00 10/02/18 19:45 Lipitor PO 20 mg HS JORGE Administration Donepezil HCl 5 mg 09/30/18 21:00 10/02/18 19:45 Aricept PO 5 mg HS JORGE Administration Enoxaparin Sodium 80 mg 10/01/18 09:00 10/01/18 08:58 Lovenox SC Not Given 899,2099 JORGE Lisinopril 20 mg 10/01/18 09:00 10/03/18 08:36 Zestril PO 20 mg DAILY JORGE Administration Memantine 10 mg 10/01/18 09:00 10/03/18 08:36 Namenda PO 10 mg DAILY JORGE Administration Pantoprazole Sodium 40 mg 10/03/18 09:00 10/03/18 08:35 Protonix PO 40 mg Q12HR JORGE Administration Desvenlafaxine 100 1 each 10/02/18 09:00 10/03/18 08:35 Mg Er PO 1 each DAILY JORGE Administration Sodium Chloride 10 ml 10/01/18 21:00 10/03/18 08:46 Flush - Normal Saline IVF 10 ml Q12HR JORGE Administration - Exam NAD, awake alert Eye: PERRL, anicteric sclera ENT: no oropharyngeal lesions, moist mucosa Neck: supple, no JVD Heart: RRR, no murmur Respiratory: no wheezes, no rales Gastrointestinal: soft, non-tender, normal bowel sounds Extremities: no cyanosis, no edema Neurological: CN's grossly intact, no focal deficits Hosp A/P (1) Acute blood loss anemia Code(s): D62 - ACUTE POSTHEMORRHAGIC ANEMIA Status: Acute (2) Bilateral pulmonary embolism Code(s): I26.99 - OTHER PULMONARY EMBOLISM WITHOUT ACUTE COR PULMONALE Status : Acute (3) NSTEMI (non-ST elevated myocardial infarction) Code(s): I21.4 - NON-ST ELEVATION (NSTEMI) MYOCARDIAL INFARCTION Status: Acute (4) Alzheimer's dementia Code(s): G30.9 - ALZHEIMER'S DISEASE, UNSPECIFIED; F02.80 - DEMENTIA IN OTH DISEASES CLASSD ELSWHR W/O BEHAVRL DISTURB Status: Chronic (5) Dyslipidemia Code(s): E78.5 - HYPERLIPIDEMIA, UNSPECIFIED Status: Chronic (6) HTN (hypertension) Code(s): I10 - ESSENTIAL (PRIMARY) HYPERTENSION Status: Chronic (7) Rectal bleed Code(s): K62.5 - HEMORRHAGE OF ANUS AND RECTUM Status: Acute - Plan had radiation proctitis with argon plasma coagulation done yesterday h/h stable, clear liq diet anticoagulation per pulm adv to amb as tolerated with PT/walking program continue norvasc, lipitor, aricept, lisinopril, protonix afib in sinus rhythm
--- NOTE | 2018-10-03 15:43 | PRG ---
DATE OF SERVICE: 10/03/2018 SERVICE: Pulmonary Medicine. INTERVAL HISTORY: The patient is doing great from respiratory standpoint. He denies any current chest discomfort, nausea, vomiting, fevers, or chills. He has a little bit of tachycardia when he gets out of bed and into a chair. Otherwise, there has been no interval change to his condition. He had a colonoscopy. On the colonoscopy, bleeding telangiectasias of the distal rectum were identified proximal to the anal verge. ASSESSMENT: 1. Acute hypoxic respiratory failure, resolved. 2. Acute pulmonary embolism, submassive. 3. Gastrointestinal bleed secondary to bleeding arteriovenous malformations of the distal rectum secondary to radiation. 4. Syncope, resolved. 5. Atrial fibrillation with rapid ventricular response, returned to sinus rhythm. 6. Right ventricular heart strain, resolved. 7. [id number] myocardial infarction, resolved. DISCUSSION AND PLAN: I am going to interrupt the patient's Lovenox. We will initiate Eliquis. At this point, he is stable for transition out of the ICU to the telemetry unit. Pulmonary/Critical Care will follow along. If he remains stable until tomorrow, he can be considered for transition out of the hospital. Job ID: [id number]
[2018-10-03] MEDS: Apixaban 5 MG TAB PO SCH ×3 (17:04→20:56)
--- NOTE | 2018-10-03 19:27 | PRG ---
DATE OF SERVICE: SUBJECTIVE: Mr. Cain has had no further bleeding. OBJECTIVE: VITAL SIGNS: Temperature is 99, pulse 87, blood pressure 131/89. ABDOMEN: Soft, nontender. LABORATORY DATA: Hemoglobin is 12.5 today. ASSESSMENT: Lower gastrointestinal bleeding after being placed on anticoagulation for pulmonary embolus. This is likely related to exacerbation of radiation proctitis. Dr. Philip treated this with argon plasma coagulation yesterday. RECOMMENDATIONS: 1. I would continue using full-dose anticoagulation, it is needed for pulmonary embolus. 2. It may be reasonable to keep him on a PPI for ulcer prophylaxis, already he is on blood thinners. 3. He may have some rectal bleeding from time to time. If this becomes successive, we can re-treat his radiation proctitis with argon plasma coagulation here in a week or so. I have talked with the patient's and noted that he is going to go home on anticoagulation. If he has massive bleeding, he will have to come back. If he has a little bit of bleeding, we could see him in the office and treat him. We will sign off at this point. If I can be of any further assistance in the patient's care, please do not hesitate to contact me. Job ID: [id number]
[2018-10-03] MEDS: Atorvastatin Calcium 20 MG TAB PO SCH (20:56)
[2018-10-03] MEDS: Donepezil HCl 5 MG TAB PO SCH (20:56)
[2018-10-04 06:33] LABS: Phosphorus 3.7 mg/dL (2.3-4.7)
[2018-10-04] MEDS: Apixaban 5 MG TAB PO SCH ×2 (08:34→20:49)
[2018-10-04] MEDS: Amlodipine 5 MG TAB PO SCH (08:34)
[2018-10-04] MEDS: Lisinopril 20 MG TAB PO SCH (08:34)
[2018-10-04] MEDS: DESVENLAFAXINE 100 MG PO SCH (08:35)
--- NOTE | 2018-10-04 12:07 | PDOC.HOSPP ---
- Subjective Encounter Date: 10/04/18 Encounter Time: 10:00 Subjective: no further bleeding per rectum no sob or chest pain eating well, at bedside is unsteady when he walks per /staff - Objective Vital Signs & Weight: Vital Signs (12 hours) Temp Pulse Resp BP BP Pulse Ox 10/04/18 08:34 77 110/78 10/04/18 08:15 98.4 F 77 18 110/78 99 10/04/18 04:00 98.1 F 59 L 18 118/72 96 Weight Weight 189 lb 4.8 oz Most Recent Monitor Data Heart Rate from ECG 99 NIBP 132/100 NIBP BP-Mean 110 Respiration from ECG 15 SpO2 100 I&O: 10/03/18 10/04/18 10/05/18 06:59 06:59 06:59 Intake Total 390 1280 Output Total 2600 600 Balance -2210 680 Result Diagrams: 10/04/18 05:36 10/03/18 05:01 ROS - Medication Medications: Active Medications Generic Name Dose Route Start Last Admin Trade Name Rosalio PRN Reason Stop Dose Admin Amlodipine Besylate 5 mg 10/01/18 09:00 10/04/18 08:34 Norvasc PO 5 mg DAILY JORGE Administration Apixaban 5 mg 10/03/18 21:00 10/04/18 08:34 Eliquis PO 5 mg BID JORGE Administration Atorvastatin Calcium 20 mg 10/01/18 21:00 10/03/18 20:56 Lipitor PO 20 mg HS JORGE Administration Donepezil HCl 5 mg 09/30/18 21:00 10/03/18 20:56 Aricept PO 5 mg HS JORGE Administration Lisinopril 20 mg 10/01/18 09:00 10/04/18 08:34 Zestril PO 20 mg DAILY JORGE Administration Memantine 10 mg 10/01/18 09:00 10/04/18 08:34 Namenda PO 10 mg DAILY JORGE Administration Pantoprazole Sodium 40 mg 10/04/18 09:00 10/04/18 08:34 Protonix PO 40 mg DAILY JORGE Administration Desvenlafaxine 100 1 each 10/02/18 09:00 10/04/18 08:35 Mg Er PO 1 each DAILY JORGE Administration Sodium Chloride 10 ml 10/01/18 21:00 10/04/18 08:35 Flush - Normal Saline IVF 10 ml Q12HR JORGE Administration - Exam NAD, awake alert Eye: PERRL, anicteric sclera ENT: no oropharyngeal lesions, moist mucosa Neck: supple, no JVD Heart: RRR, no murmur Respiratory: no wheezes, no rales Gastrointestinal: soft, non-tender, normal bowel sounds Extremities: no clubbing, no edema Neurological: CN's grossly intact, no focal deficits Psychiatric: normal affect Hosp A/P (1) Acute blood loss anemia Code(s): D62 - ACUTE POSTHEMORRHAGIC ANEMIA Status: Acute (2) Bilateral pulmonary embolism Code(s): I26.99 - OTHER PULMONARY EMBOLISM WITHOUT ACUTE COR PULMONALE Status : Acute (3) NSTEMI (non-ST elevated myocardial infarction) Code(s): I21.4 - NON-ST ELEVATION (NSTEMI) MYOCARDIAL INFARCTION Status: Resolved (4) Alzheimer's dementia Code(s): G30.9 - ALZHEIMER'S DISEASE, UNSPECIFIED; F02.80 - DEMENTIA IN OTH DISEASES CLASSD ELSWHR W/O BEHAVRL DISTURB Status: Chronic (5) Dyslipidemia Code(s): E78.5 - HYPERLIPIDEMIA, UNSPECIFIED Status: Chronic (6) HTN (hypertension) Code(s): I10 - ESSENTIAL (PRIMARY) HYPERTENSION Status: Chronic (7) Rectal bleed Code(s): K62.5 - HEMORRHAGE OF ANUS AND RECTUM Status: Resolved - Plan had radiation proctitis with argon plasma coagulation h/h stable, solid diet on eliquis, no bleeding so far, tolerating it well to amb as tolerated with PT/walking program continue norvasc, lipitor, aricept, lisinopril, protonix afib in sinus rhythm rehab eval/swing bed, d/w CM and rehab liason
--- NOTE | 2018-10-04 14:56 | PRG ---
DATE OF SERVICE: 10/04/2018 SERVICE: Pulmonary Medicine. INTERVAL HISTORY: The patient is doing really well from breathing standpoint. Denies any cough, sputum production, fevers, chills, nausea, or vomiting. He is not short of breath. He has been working with physical therapy and walking. He does not have any dyspnea that limits his activity. PHYSICAL EXAMINATION: VITAL SIGNS: Afebrile, pulse 68, blood pressure 107/82, respirations 14, saturation 99% on room air. GENERAL: The patient is awake and alert, in no apparent distress. LUNGS: Very good air entry without any prolonged expiratory phase or wheezing present. HEART: Normal rate, regular. ABDOMEN: Soft, nontender, and nondistended. Bowel sounds are positive. MUSCULOSKELETAL: No cyanosis or clubbing. There is no pitting in the bilateral lower extremities. NEUROLOGIC: Grossly nonfocal. LABORATORY DATA: Hemoglobin 13.0 and stable. INR 1.1. Basic metabolic profile is unremarkable. BNP is about stable. Troponin is downtrending to 0.08. Magnesium and phosphorous fall within normal limits. ASSESSMENT: 1. Acute hypoxic respiratory failure, resolved. 2. Acute pulmonary embolism, submassive. 3. 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 4. Syncope, resolved. 5. Atrial fibrillation with rapid ventricular response, returned to sinus rhythm. 6. Right ventricular heart strain, resolved. 7. Xdr-CL-vbidnyyzt myocardial infarction, resolved. DISCUSSION AND PLAN: The patient is doing great. We are going to continue the Eliquis twice daily. He will need a total duration of 9 months of therapy. At this point, he is stable for transition out of the hospital. He has no further requirements for inpatient Pulmonary/Critical Care opinion, and I will sign off. At this point, we are simply awaiting disposition to rehabilitation center. Job ID: [id number]
[2018-10-04] MEDS: Donepezil HCl 5 MG TAB PO SCH (20:49)
[2018-10-04] MEDS: Atorvastatin Calcium 20 MG TAB PO SCH (20:49)
[2018-10-05] MEDS: Lisinopril 20 MG TAB PO SCH (09:35)
[2018-10-05] MEDS: Apixaban 5 MG TAB PO SCH ×2 (09:36→20:20)
[2018-10-05] MEDS: Amlodipine 5 MG TAB PO SCH (09:36)
[2018-10-05] MEDS: Donepezil HCl 5 MG TAB PO SCH (09:39)
[2018-10-05] MEDS: DESVENLAFAXINE 100 MG PO SCH (09:40)
--- NOTE | 2018-10-05 10:44 | PDOC.HOSPP ---
- Subjective Encounter Date: 10/05/18 Encounter Time: 10:00 Subjective: no sob or palp at bedside feels better - Objective Vital Signs & Weight: Vital Signs (12 hours) Temp Pulse Resp BP BP Pulse Ox 10/05/18 09:36 53 L 145/75 H 10/05/18 09:35 145/75 H 10/05/18 08:00 98 10/05/18 07:53 97.6 F 53 L 18 145/75 H 98 10/05/18 03:33 98 F 70 18 115/64 95 10/05/18 02:12 97 Weight Weight 191 lb 8 oz Most Recent Monitor Data Heart Rate from ECG 99 NIBP 132/100 NIBP BP-Mean 110 Respiration from ECG 15 SpO2 100 I&O: 10/04/18 10/05/18 10/06/18 06:59 06:59 06:59 Intake Total 1280 240 Output Total 600 Balance 680 240 Result Diagrams: 10/04/18 05:36 10/03/18 05:01 ROS - Medication Medications: Active Medications Generic Name Dose Route Start Last Admin Trade Name Freq PRN Reason Stop Dose Admin Amlodipine Besylate 5 mg 10/01/18 09:00 10/05/18 09:36 Norvasc PO 5 mg DAILY JORGE Administration Apixaban 5 mg 10/03/18 21:00 10/05/18 09:36 Eliquis PO 5 mg BID JORGE Administration Atorvastatin Calcium 20 mg 10/01/18 21:00 10/04/18 20:49 Lipitor PO 20 mg HS JORGE Administration Bisacodyl 10 mg 09/30/18 13:30 10/05/18 09:49 Dulcolax PO 10 mg DAILYPRN PRN Administration Constipation Donepezil HCl 5 mg 09/30/18 21:00 10/05/18 09:39 Aricept PO 5 mg HS JORGE Administration Lisinopril 20 mg 10/01/18 09:00 10/05/18 09:35 Zestril PO 20 mg DAILY JORGE Administration Memantine 10 mg 10/01/18 09:00 10/05/18 09:36 Namenda PO 10 mg DAILY JORGE Administration Pantoprazole Sodium 40 mg 10/04/18 09:00 10/05/18 09:36 Protonix PO 40 mg DAILY JORGE Administration Desvenlafaxine 100 1 each 10/02/18 09:00 10/05/18 09:40 Mg Er PO 1 each DAILY JORGE Administration Sodium Chloride 10 ml 10/01/18 21:00 10/05/18 09:43 Flush - Normal Saline IVF 10 ml Q12HR JORGE Administration - Exam NAD, awake alert Eye: PERRL, anicteric sclera ENT: no oropharyngeal lesions, moist mucosa Neck: supple, no JVD Heart: RRR, no murmur Respiratory: no wheezes, no rales Gastrointestinal: soft, non-tender, normal bowel sounds Extremities: no cyanosis, no edema Neurological: CN's grossly intact, no focal deficits Hosp A/P (1) Acute blood loss anemia Code(s): D62 - ACUTE POSTHEMORRHAGIC ANEMIA Status: Resolved (2) Bilateral pulmonary embolism Code(s): I26.99 - OTHER PULMONARY EMBOLISM WITHOUT ACUTE COR PULMONALE Status : Acute (3) NSTEMI (non-ST elevated myocardial infarction) Code(s): I21.4 - NON-ST ELEVATION (NSTEMI) MYOCARDIAL INFARCTION Status: Resolved (4) Alzheimer's dementia Code(s): G30.9 - ALZHEIMER'S DISEASE, UNSPECIFIED; F02.80 - DEMENTIA IN OTH DISEASES CLASSD ELSWHR W/O BEHAVRL DISTURB Status: Chronic (5) Dyslipidemia Code(s): E78.5 - HYPERLIPIDEMIA, UNSPECIFIED Status: Chronic (6) HTN (hypertension) Code(s): I10 - ESSENTIAL (PRIMARY) HYPERTENSION Status: Chronic (7) Rectal bleed Code(s): K62.5 - HEMORRHAGE OF ANUS AND RECTUM Status: Resolved - Plan had radiation proctitis with argon plasma coagulation h/h stable, solid diet on eliquis, tolerating it well to amb as tolerated with PT/walking program continue norvasc, lipitor, aricept, lisinopril, protonix afib in sinus rhythm rehab in am, has been approved d/w at bedside
[2018-10-05] MEDS: Atorvastatin Calcium 20 MG TAB PO SCH (20:20)
[2018-10-06] MEDS: Amlodipine 5 MG TAB PO SCH (09:03)
[2018-10-06] MEDS: Apixaban 5 MG TAB PO SCH (09:03)
[2018-10-06] MEDS: Lisinopril 20 MG TAB PO SCH (09:04)
[2018-10-06] MEDS: DESVENLAFAXINE 100 MG PO SCH (09:07)
[2018-10-06 12:39] VITALS: TEMP 98.6
[2018-10-06 16:03] VITALS: BP 122/73
--- NOTE | 2018-10-07 13:48 | DIS ---
DATE OF ADMISSION: 09/30/2018 DATE OF DISCHARGE: 10/06/2018 DISCHARGE DISPOSITION: Inpatient rehab. PRIMARY DISCHARGE DIAGNOSES: Bilateral pulmonary embolism; acute blood loss anemia with radiation proctitis and bleeding, status post argon coagulation; non-ST elevation myocardial infarction, type 2; dementia; dyslipidemia; hypertension. PROCEDURES DONE DURING HOSPITALIZATION: CT angio chest done on the day of admission showed bilateral pulmonary embolism. CT brain on the day of admission showed no acute finding. Echo with 2D Doppler showed EF of 50% to 55%, diastolic dysfunction, and moderately enlarged RV cavity. EGD done showed no stigmata of bleeding. Small hiatal hernia. Mild antral gastritis with no active bleeding. Normal duodenum. Colonoscopy done by Dr. Júnior Philip on 10/02/2018 showed multiple small colonic polyps seen in the cecum, ascending and transverse colon with no intervention done as the patient was on anticoagulation, moderate sigmoid diverticulosis without evidence of active or recent bleeding, active bleeding and radiation proctitis in the distal rectum, successfully intervened with argon plasma coagulation with good hemostasis achieved. Discharge H and H 13 and 39, platelet count 203. Hemoglobin and hematocrit had dropped down to 11 and 35 on the second day of admission. Discharge BUN and creatinine are 16 and 0.9. Initial BUN and creatinine were 40 and 1.7. INPATIENT CONSULTATION: Dr. Philip - Dr. Valadez for Gastroenterology, Dr. Bahena for Pulmonology and Critical Care, Dr. Riley for Cardiology. DISCHARGE MEDICATIONS: 1. Xanax 0.25 mg p.o. at bedtime. 2. Eliquis 5 mg p.o. twice daily. 3. Lisinopril 20 mg p.o. daily. 4. Protonix 40 mg p.o. daily. 5. Norvasc 5 mg p.o. daily. 6. Zocor 40 mg p.o. daily. 7. Memantine 10 mg twice daily. 8. Donepezil 10 mg twice daily. 9. Desvenlafaxine extended release 100 mg p.o. daily. ALLERGIES: PROTAMINE. DISCHARGE PLAN: The patient is to follow up with Dr. Bahena as advised and primary care physician in 1 week. BRIEF COURSE DURING HOSPITALIZATION: The patient initially got admitted on the after he passed out. His initial workup revealed pulmonary embolism. The patient also developed rectal bleeding. In view of this, gastroenterology consultation was requested. The patient has had upper endoscopy done with no obvious source of bleeding. Colonoscopy done revealed radiation proctitis and this was dealt with plasma argon coagulation. Post this procedure, the patient has not had any further rectal bleeding. He was re-initiated on Eliquis 24 hours later and has tolerated it well. Due to deconditioning, he is being discharged to inpatient rehab for further recuperation. Please note, I have seen and examined the patient on the day of discharge. Job ID: [id number]
== END 2018-10-06 17:59 | DRG 175 ==
LOC: ERS 08:48 → CCU 13:40 → 2NO 10-03 17:39
PROVIDERS: ADMIT Internal Medicine; ATTEND Internal Medicine
PROC: 3E03317 Introduction of Other Thrombolytic into Peripheral Vein, Percutaneous Approach (ICD-10-PCS; 2018-09-30)
PROC: 0DJ08ZZ Inspection of Upper Intestinal Tract, Via Natural or Artificial Opening Endoscopic (ICD-10-PCS; principal; 2018-10-01)
PROC: 0DJD8ZZ Inspection of Lower Intestinal Tract, Via Natural or Artificial Opening Endoscopic (ICD-10-PCS; 2018-10-02)
PROC: 0W3P8ZZ Control Bleeding in Gastrointestinal Tract, Via Natural or Artificial Opening Endoscopic (ICD-10-PCS; 2018-10-02)
DX: I26.99 Other pulmonary embolism without acute cor pulmonale (principal); I21.4 Non-ST elevation (NSTEMI) myocardial infarction; J96.01 Acute respiratory failure with hypoxia; K55.21 Angiodysplasia of colon with hemorrhage; N17.9 Acute kidney failure, unspecified; D62 Acute posthemorrhagic anemia; K62.5 Hemorrhage of anus and rectum; J45.909 Unspecified asthma, uncomplicated; I25.10 Atherosclerotic heart disease of native coronary artery without angina pectoris; I48.91 Unspecified atrial fibrillation; G30.9 Alzheimer's disease, unspecified; F02.80 Dementia in other diseases classified elsewhere, unspecified severity, without behavioral disturbance, psychotic disturbance, mood disturbance, and anxiety; Z96.641 Presence of right artificial hip joint; K44.9 Diaphragmatic hernia without obstruction or gangrene; K29.70 Gastritis, unspecified, without bleeding; K63.5 Polyp of colon; K57.90 Diverticulosis of intestine, part unspecified, without perforation or abscess without bleeding; I51.89 Other ill-defined heart diseases; K62.7 Radiation proctitis; Z85.46 Personal history of malignant neoplasm of prostate; Z95.1 Presence of aortocoronary bypass graft; Z88.8 Allergy status to other drugs, medicaments and biological substances; Z79.82 Long term (current) use of aspirin
CPT/HCPCS: 36415; 70450; 71045; 71275; 80048; 80053; 81003; 82550; 82553; 83690; 83735; 83880; 84100; 84484; 85014; 85018; 85025; 85610; 85730; 86850; 86900; 86901; 93005; 93306; 96365; C9113; J1644; J1650; J1940; J2001; J2704; J2997; Q9966

== ENCOUNTER 2018-12-07 10:33 | Outpatient (CLI) | payer MEDICARE, BC ==
--- NOTE | 2018-12-07 10:47 | RAD ---
XR Chest Pa Lat @ [facility] HISTORY: Dyspnea COMPARISON: None 09/30/2018 FINDINGS: The heart size is normal. Changes of median sternotomy are again seen. The lungs are well e xpanded without focal areas of consolidation, pneumothorax or pleural effusions. IMPRESSION: No radiographic evidence of acute cardiopulmonary process.
== END 2018-12-07 10:34 | disposition home or self-care (01) ==
LOC: RAD 10:33
PROVIDERS: ATTEND Internal Medicine
DX: R06.00 Dyspnea, unspecified (principal)
CPT/HCPCS: 71046